=== PATIENT | female | born 1955 | race Two or more races ===

== ENCOUNTER 2017-10-10 13:21 | Emergency (ER) | payer OTHER ==
[~2017-10-10] VITALS: Ht 152.4 cm; Wt 65.8 kg
[~2017-10-10 13:21] MED LIST: ADULT ASPIRIN81 MG; AMLODIPINE-BENA1 CA1; APETIGEN PO; ARICEPT10 MG; CLONAZEPAM0.5 MG; FOLIC ACID1 MG; GILTUSS TR TAB1 EACH PO; IRON1 TAB; TRAZODONE HCL50 MG
== END 2017-10-10 18:05 | disposition home or self-care (01) ==
LOC: ER 13:21
DX: S63.681A Other sprain of right thumb, initial encounter (principal); X50.0XXA Overexertion from strenuous movement or load, initial encounter; Y93.89 Activity, other specified; Y92.098 Other place in other non-institutional residence as the place of occurrence of the external cause; Y99.8 Other external cause status

== ENCOUNTER 2018-06-15 13:33 | Outpatient (CLI) | payer OTHER | END 2018-06-15 13:51 | disposition home or self-care (01) | LOC: LAB 13:33 | DX: J11.1 Influenza due to unidentified influenza virus with other respiratory manifestations (principal); J06.9 Acute upper respiratory infection, unspecified ==

== ENCOUNTER 2021-01-27 10:22 | Outpatient (CLI) | payer OTHER | END 2021-01-27 10:28 | disposition home or self-care (01) | LOC: MAMO-SONO 10:22 | PROVIDERS: ATTEND Internal Medicine | DX: M25.512 Pain in left shoulder (principal); M25.511 Pain in right shoulder; N64.89 Other specified disorders of breast; M06.211 Rheumatoid bursitis, right shoulder; M06.212 Rheumatoid bursitis, left shoulder; I10 Essential (primary) hypertension; Z12.31 Encounter for screening mammogram for malignant neoplasm of breast ==

== ENCOUNTER 2021-02-04 13:45 | Outpatient (CLI) | payer OTHER | END 2021-02-04 14:01 | disposition home or self-care (01) | LOC: NUCLEAR 13:45 | PROVIDERS: ATTEND Internal Medicine | DX: M81.0 Age-related osteoporosis without current pathological fracture (principal) ==

== ENCOUNTER 2021-09-28 07:22 | Outpatient (CLI) | payer OTHER | END 2021-09-28 07:29 | disposition home or self-care (01) | LOC: LAB 07:22 | PROVIDERS: ATTEND Internal Medicine | DX: D50.9 Iron deficiency anemia, unspecified (principal); E11.9 Type 2 diabetes mellitus without complications; E03.9 Hypothyroidism, unspecified; E55.9 Vitamin D deficiency, unspecified; N39.0 Urinary tract infection, site not specified; R80.0 Isolated proteinuria ==

== ENCOUNTER → 2022-02-18 07:42 | Outpatient (CLI) | payer OTHER | END | disposition home or self-care (01) | LOC: LAB 07:42 | PROVIDERS: ATTEND Internal Medicine | DX: D50.9 Iron deficiency anemia, unspecified (principal); E11.9 Type 2 diabetes mellitus without complications; E78.2 Mixed hyperlipidemia; N39.0 Urinary tract infection, site not specified ==

== ENCOUNTER 2022-02-18 08:21 | Outpatient (CLI) | payer OTHER | END 2022-02-18 08:27 | disposition home or self-care (01) | LOC: RAD 08:21 | PROVIDERS: ATTEND Internal Medicine | DX: M25.519 Pain in unspecified shoulder (principal) ==

== ENCOUNTER 2022-02-22 07:31 | Outpatient (CLI) | payer OTHER | END 2022-02-22 07:34 | disposition home or self-care (01) | LOC: MAMO-SONO 07:31 | DX: N64.51 Induration of breast (principal) ==

== ENCOUNTER 2022-04-04 07:10 | Inpatient (IN) | payer OTHER ==
[~2022-04-04] VITALS: Ht 152.4 cm; Wt 63.5 kg
[2022-04-04] MEDS ORDERED: LIPITOR40 M1 PO (07:27)
== END 2022-04-10 17:36 | disposition home or self-care (01) | DRG 446 ==
LOC: ER 07:10 → MEDI 19:14
PROVIDERS: ADMIT Internal Medicine; ATTEND Internal Medicine
DX: K80.00 Calculus of gallbladder with acute cholecystitis without obstruction (principal); R10.11 Right upper quadrant pain; Z20.822 Contact with and (suspected) exposure to COVID-19; E78.5 Hyperlipidemia, unspecified

== ENCOUNTER 2022-04-19 07:15 | Outpatient (CLI) | payer OTHER ==
[~2022-04-19 07:15] MED LIST changes: +LIPITOR40 M1 PO
== END 2022-04-19 07:17 | disposition home or self-care (01) ==
LOC: NUCLEAR 07:15
PROVIDERS: ATTEND Internal Medicine
DX: K81.1 Chronic cholecystitis (principal); Z88.0 Allergy status to penicillin
CPT/HCPCS: 78227; A9537; J2805

== ENCOUNTER 2022-04-26 07:52 | Outpatient (CLI) | payer OTHER | END 2022-04-26 08:06 | disposition home or self-care (01) | LOC: RAD 07:52 | PROVIDERS: ATTEND Internal Medicine | DX: R10.32 Left lower quadrant pain (principal); K57.90 Diverticulosis of intestine, part unspecified, without perforation or abscess without bleeding; M75.102 Unspecified rotator cuff tear or rupture of left shoulder, not specified as traumatic | CPT/HCPCS: 73221; 74177; Q9965 ==

== ENCOUNTER 2022-05-17 09:00 | Inpatient (IN) | payer OTHER ==
[~2022-05-17] VITALS: Ht 152.4 cm; Wt 62.1 kg
[2022-05-24] MEDS ORDERED: ALENDRONATE SOD35 MG (15:34)
[2022-05-24] MEDS ORDERED: CLONAZEPAM0.5 MG (15:35)
[2022-05-24] MEDS ORDERED: VITAMIN D350 MCG (15:35)
[2022-05-24] MEDS ORDERED: PRESERVISION A1 EAC4 (15:35)
== END 2022-05-25 15:02 | disposition home or self-care (01) | DRG 331 ==
LOC: SURH 05-23 06:02 → O/R 05-23 06:02 → SURH 05-23 09:00
PROVIDERS: ADMIT Colon & Rectal Surgery; ATTEND Colon & Rectal Surgery
PROC: 0DBP4ZZ Excision of Rectum, Percutaneous Endoscopic Approach (ICD-10-PCS; 2022-05-23)
PROC: 07BB4ZZ Excision of Mesenteric Lymphatic, Percutaneous Endoscopic Approach (ICD-10-PCS; 2022-05-23)
PROC: 4A1BXSH Monitoring of Gastrointestinal Vascular Perfusion using Indocyanine Green Dye, External Approach (ICD-10-PCS; 2022-05-23)
PROC: 3E0F7SF Introduction of Other Gas into Respiratory Tract, Via Natural or Artificial Opening (ICD-10-PCS; 2022-05-23)
PROC: 0DTN4ZZ Resection of Sigmoid Colon, Percutaneous Endoscopic Approach (ICD-10-PCS; principal; 2022-05-23 10:30)
DX: C19 Malignant neoplasm of rectosigmoid junction (principal); R59.0 Localized enlarged lymph nodes

== ENCOUNTER 2023-01-14 09:15 | Inpatient (IN) | payer OTHER ==
[~2023-01-14] VITALS: Ht 149.9 cm; Wt 46.7 kg
[~2023-01-14 09:15] MED LIST changes: +ALENDRONATE SOD35 MG; +PRESERVISION A1 EAC4; +VITAMIN D350 MCG
[2023-01-17] MEDS ORDERED: FAMOTIDINE20 MG (10:24)
[2023-01-17] MEDS ORDERED: ATORVASTATIN CA20 MG (10:24)
[2023-01-18] MEDS ORDERED: LEVOFLOXACIN750 MG PO (15:14)
[2023-01-18] MEDS ORDERED: INTESTINEX680 M1 PO (15:14)
[2023-01-18] MEDS ORDERED: METRONIDAZOLE500 MG PO (15:14)
[2023-01-18] MEDS ORDERED: PEPCID AC20 MG PO (15:14)
== END 2023-01-19 13:44 | disposition home or self-care (01) | DRG 445 ==
LOC: ER 09:15 → MEDI 23:03 → SURH 01-17 11:43
PROVIDERS: Emergency Medicine; General Practice; ADMIT Internal Medicine; ATTEND Internal Medicine
PROC: BW21YZZ Computerized Tomography (CT Scan) of Abdomen and Pelvis using Other Contrast (ICD-10-PCS; principal; 2023-01-14)
PROC: BW40ZZZ Ultrasonography of Abdomen (ICD-10-PCS; 2023-01-14)
PROC: BF37ZZZ Magnetic Resonance Imaging (MRI) of Pancreas (ICD-10-PCS; 2023-01-14)
DX: K80.00 Calculus of gallbladder with acute cholecystitis without obstruction (principal); C18.7 Malignant neoplasm of sigmoid colon; D72.828 Other elevated white blood cell count; I10 Essential (primary) hypertension; E78.49 Other hyperlipidemia; E86.0 Dehydration

== ENCOUNTER 2023-03-02 09:19 | Outpatient (CLI) | payer OTHER ==
[~2023-03-02 09:19] MED LIST changes: +ATORVASTATIN CA20 MG; +FAMOTIDINE20 MG; +INTESTINEX680 M1 PO; +LEVOFLOXACIN750 MG PO; +METRONIDAZOLE500 MG PO; +PEPCID AC20 MG PO
== END 2023-03-02 14:34 | disposition home or self-care (01) ==
LOC: MAMO-SONO 09:19
PROVIDERS: ATTEND Internal Medicine
DX: Z12.31 Encounter for screening mammogram for malignant neoplasm of breast (principal)

== ENCOUNTER 2023-06-21 11:24 | Outpatient (CLI) | payer OTHER | END 2023-06-21 11:31 | disposition home or self-care (01) | LOC: RAD 11:24 | PROVIDERS: ATTEND Physical Medicine & Rehabilitation Sports Medicine | DX: M25.511 Pain in right shoulder (principal); M25.512 Pain in left shoulder ==

== ENCOUNTER 2024-02-26 09:14 | Outpatient (CLI) | payer OTHER | END 2024-02-26 09:18 | disposition home or self-care (01) | LOC: SONOGRAMA 09:14 | PROVIDERS: ATTEND Pathology Anatomic Pathology & Clinical Pathology | DX: D34 Benign neoplasm of thyroid gland (principal); E07.89 Other specified disorders of thyroid; E04.1 Nontoxic single thyroid nodule ==

== ENCOUNTER 2024-09-09 12:37 | Outpatient (CLI) | payer OTHER | END 2024-09-09 12:41 | disposition home or self-care (01) | LOC: SONOGRAMA 12:37 | PROVIDERS: ATTEND Internal Medicine | DX: M25.511 Pain in right shoulder (principal); M75.100 Unspecified rotator cuff tear or rupture of unspecified shoulder, not specified as traumatic; M75.82 Other shoulder lesions, left shoulder; M75.50 Bursitis of unspecified shoulder; E04.1 Nontoxic single thyroid nodule ==

== ENCOUNTER 2025-03-10 12:20 | Outpatient (CLI) | payer OTHER | END 2025-03-10 12:25 | disposition home or self-care (01) | LOC: SONOGRAMA 12:20 | PROVIDERS: ATTEND Internal Medicine | DX: E04.1 Nontoxic single thyroid nodule (principal) ==